=== PATIENT | female | born 1955 | race Caucasian/White ===

== ENCOUNTER 2016-08-28 10:13 | Day surgery (SDC) | payer BC ==
[2016-08-28] VITALS (23 sets, daily range): BP systolic 80–153; BP diastolic 44–98
[~2016-08-28] VITALS: Ht 177.8 cm; Wt 94.8 kg
[2016-08-28 10:50] LABS: MEAN PLATELET VOLUME 9.7 FL (7.4-10.4); RED BLOOD COUNT 4.54 10^6/uL (4.35-5.85); RED CELL DISTRIBUTION WIDTH 14.2 % (10.0-14.5); WHITE BLOOD COUNT 10.8 10^3/uL (4.3-11.0)
[2016-08-28] MEDS ORDERED: LIDOCAINE 1% INJ 20 ML (XYLOCAINE) VIAL INJ ONE (11:15)
[2016-08-28] MEDS ORDERED: LANS15CA21 PO (11:31)
[2016-08-28] MEDS ORDERED: NEBI5TAB8 PO (11:31)
[2016-08-28] MEDS ORDERED: ALPR0.5T7 PO (11:31)
[2016-08-28] MEDS ORDERED: RIVA15TA PO (11:31)
[2016-08-28] MEDS ORDERED: HYDR-757 PO (11:31)
[2016-08-28] MEDS: fentaNYL INJECTION 100 MCG/2 ML AMP IVP PRN ×2 (13:17→13:33)
--- NOTE | 2016-08-28 13:42 | Pre-Procedure Progress Note ---
Pre-Procedure Progress Note H&P Reviewed The H&P was reviewed, patient examined and no changes noted. Date H&P Reviewed: August 28, 2016 Time H&P Reviewed: 13:00 Pre-Procedure Diagnosis: lung mass RADHA ALVARENGA MD August 28, 2016 13:41
--- NOTE | 2016-08-28 13:43 | Discharge Instructions ---
Discharge Instructions Home Medicaitons Changes Hold any current blood thinner for [24 hours] otherwise no change on home medications RADHA ALVARENGA MD August 28, 2016 13:43
[2016-08-28] MEDS ORDERED: HYDROcodone/APAP 5 MG/325 MG (LORTAB) TAB PO PRN (13:45)
[2016-08-28] MEDS ORDERED: LACTATED RINGERS 1,000 ML IV SCH (14:10)
[2016-08-28] MEDS ORDERED: fentaNYL INJECTION 100 MCG/2 ML AMP IVP ONE (14:30)
--- NOTE | 2016-08-28 15:13 | Diagnostic Imaging Report ---
EXAMINATION: CT-guided biopsy-lung. INDICATION: Right lower lobe mass. Current history and physical and other medical records are reviewed prior to the procedure. CONSENT: Informed consent was obtained from the patient. The risks, benefits, potential complications and alternatives were reviewed and all questions answered to the patient's satisfaction. The patient's vital signs, cardiac rhythm, and pulse oximetry were observed throughout the procedure by qualified nursing personnel. Sedation/medications: Fentanyl 50 mcg IV. The patient has taken Xanax before the procedure. Total conscious sedation time and monitoring is 45 minutes FINDINGS: Large right lower lobe lung mass. PROCEDURE: After maximal sterile barrier technique preparation and draping, 1% lidocaine was utilized for local anesthesia. With the patient in right side down decubitus position, and via posterior intercostal approach, a 19-gauge guide needle is introduced into the right lower lobe mass under CT scan guidance. After confirming adequate positioning with saved CT images, multiple 20 gauge core biopsy specimens were obtained. 3 cc of autologous blood patch injected in the tract as the guide needle was removed The patient tolerated the procedure well with no immediate complications. IMPRESSION: Successful CT-guided biopsy of right lower lobe lung mass. Dictated by: Dictated on workstation # [id number]
--- NOTE | 2016-08-28 15:20 | Diagnostic Imaging Report ---
Portable expiratory view of the chest. INDICATION: Chest pain after lung biopsy. FINDINGS: There is a right infrahilar mass measuring 8 cm with mild right basilar atelectasis. No evidence of pneumothorax. The left lung is clear. The heart size is borderline in size. No significant effusion or evidence of hemothorax. IMPRESSION: Right perihilar mass with adjacent atelectasis. Dictated by: Dictated on workstation # [id number]
--- NOTE | 2016-08-28 15:38 | Diagnostic Imaging Report ---
Portable upright expiratory view of the chest. INDICATION: Chest pain after lung biopsy. FINDINGS: There is a large right perihilar lung mass. There is mild atelectasis adjacent to it. There is no pneumothorax. No effusion or hemothorax. The heart size is borderline enlarged. The left lung is clear. IMPRESSION: Large right perihilar mass with adjacent mild atelectasis. Dictated by: Dictated on workstation # [id number]
== END 2016-08-28 17:05 | disposition home or self-care (01) ==
LOC: RAD 10:13
DX: C34.31 Malignant neoplasm of lower lobe, right bronchus or lung (principal); Z86.718 Personal history of other venous thrombosis and embolism; Z79.01 Long term (current) use of anticoagulants; Z87.891 Personal history of nicotine dependence; Z79.899 Other long term (current) drug therapy
CPT/HCPCS: 36415; 71035; 77012; 85027; 85610; 85730; 86850; 86900; 86901